=== PATIENT | female | born 1980 | race Two or more races ===

== ENCOUNTER 2016-10-07 22:52 | Emergency (ER) | payer BC ==
[~2016-10-07] VITALS: Ht 157.5 cm; Wt 95.3 kg
[2016-10-07 23:07] VITALS: BP 111/74
[2016-10-07] MEDS ORDERED: [UNRECOGNIZED DRUG - REMARK] (23:13)
--- NOTE | 2016-10-07 23:37 | Emergency Room Report ---
History of Present Illness General Chief Complaint: Lower Extremity Injury Source: Patient Present Illness HPI Is a 36-year-old female with no significant past medical history. She presents with a foreign body to her left toe. She was walking barefooted and stepped on a piece of glass. She tried to take it out at home but unsuccessful. No other injury. Pain with pressure on it. Allergies: Coded Allergies: PENICILLINS (Verified Allergy, Unknown, 10/07/16) Patient History Past Medical History: see triage record, old chart reviewed Past Surgical History: none Pertinent Family History: none Social History: Denies: smoking Last Menstrual Period: 2 weeks ago Now: No Immunizations: other Reviewed Nursing Documentation: PMH: Agreed, PSxH: Agreed Nursing Documentation-PMH Past Medical History: No Stated History Review of Systems Eye: Denies: blurred vision, eye pain ENT: Denies: ear pain, nose congestion, throat swelling Respiratory: Denies: cough, shortness of breath Cardiovascular: Denies: chest pain, palpitations Gastrointestinal: Denies: abdominal pain, diarrhea, nausea, vomiting Musculoskeletal: Denies: back pain, joint pain Skin: Denies: rash Neurological: Denies: headache, numbness Endocrine: Denies: increased thirst, increased urine Hematologic/Lymphatic: Denies: easy bruising All Other Systems: negative except mentioned in HPI Physical Exam Vital Signs Date Time Temp Pulse Resp B/P Pulse Ox O2 Delivery O2 Flow Rate FiO2 10/07/16 23:07 98.1 72 16 111/74 97 Room Air vitals normal Sp02 EP Interpretation: reviewed, normal General Appearance: well appearing, no apparent distress, alert Head: normocephalic, atraumatic Eyes: bilateral eye EOMI, bilateral eye PERRL ENT: hearing grossly normal, normal pharynx Neck: full range of motion, supple, no meningismus Respiratory: chest non-tender, lungs clear, normal breath sounds Cardiovascular #1: regular rate, rhythm, no murmur Gastrointestinal: normal bowel sounds, non tender, no mass, no organomegaly, no bruit, non-distended Musculoskeletal: back normal, gait/station normal, normal range of motion, other - Left great toe: On the ball of the toe, was able to palpate a small sliver of glass. No redness or fever. Psychiatric: mood/affect normal Skin: warm/dry Procedures Additional Procedure Procedure Narrative Procedure: Foreign body removal Indication: Foreign body Description: Area clean with alcohol. Small injection of lidocaine 1% without epinephrine. I used the scalpel to remove the callus. There was a small sliver of glass embedded. It was removed without any problem. No bleeding. Medical Decision Making Diagnostic Impression: Primary Impression: Foreign body in soft tissue ER Course Patient with foreign body in her toe. It was removed. Low risk for infection. We'll discharge home. Last Vital Signs Date Time Temp Pulse Resp B/P Pulse Ox O2 Delivery O2 Flow Rate FiO2 10/07/16 23:07 98.1 72 16 111/74 97 Room Air Status: improved Disposition: HOME, SELF-CARE Condition: Stable Additional Instructions: Followup with your Dr. in 7 days as needed. Return for any concern. EDDY OLIVERA M.D. Oct 07, 2016 23:37
== END 2016-10-07 23:40 | disposition home or self-care (01) ==
LOC: EMR 23:27
DX: S90.452A Superficial foreign body, left great toe, initial encounter (principal); W22.8XXA Striking against or struck by other objects, initial encounter; Y92.009 Unspecified place in unspecified non-institutional (private) residence as the place of occurrence of the external cause; Z88.0 Allergy status to penicillin
CPT/HCPCS: 10120